=== PATIENT | female | born 1945 | race Caucasian/White ===

== ENCOUNTER 2023-09-07 11:34 | Outpatient (REF) | payer MEDICAID, OTHER, SELFPAY ==
[2023-09-07 13:21] LABS: MANUAL DIFF FLAG NO
[2023-09-07 13:27] LABS: Basophils Percent Auto 0.7 % (0-2); Eosinophils Absolute Auto 0.2 X10*3/uL (0.0-0.4); Eosinophils Percent Auto 3.8 % (0-4); Hematocrit 37.7 % (37.0-47.0); Hemoglobin 11.7 g/dl (12.0-16.0); Imm Gran Abs Auto 0.02 X10*3/uL (0.00-0.03); Imm Gran Pct Auto 0.4 % (0.0-0.4); Lymphocytes Absolute Auto 1.7 X10*3/uL (1.2-4.9); Lymphocytes Percent Auto 30.1 % (20-40); Mean Corpuscular Hemoglobin 25.9 pg (27.0-33.0); Mean Corpuscular Volume 83.6 fL (80.0-98.0); Monocytes Absolute Auto 0.5 X10*3/uL (0.1-1.2); Monocytes Percent Auto 8.9 % (2-11); Neutrophils Absolute Auto 3.1 x10*3/uL (2.0-8.3); Neutrophils Percent Auto 56.1 % (45-73); Platelet Count 233 X10*3/uL (160-400); Red Blood Count 4.51 X10*6/uL (4.20-5.50); Red Cell Distribution Width 15.8 % (11.0-16.0); White Blood Count 5.5 X10*3/uL (4.8-10.8)
[2023-09-07 13:39] LABS: Estimated Average Glucose 120 mg/dL; Hemoglobin A1c % 5.8 % (<6.0)
[2023-09-07 13:53] LABS: Alanine Aminotransferase 19 U/L (0-31); Albumin Level 4.1 g/dL (3.5-5.0); Alkaline Phosphatase 89 U/L (39-117); Anion Gap 14 (12-20); Aspartate Amino Transferase 25 U/L (5-31); Bilirubin Total 0.4 mg/dL (0.0-1.0); Blood Urea Nitrogen 13 mg/dL (9-16); Calcium 9.7 mg/dL (8.4-10.2); Carbon Dioxide 24 mmol/L (22-29); Chloride 107 mmol/L (96-108); Cholesterol 170 mg/dL (<200); Estimated Glomerular Filt Rate > 60; Glucose Random 85 mg/dL (60-115); HDL Cholesterol 56 mg/dL (>40); LDL Cholesterol Calculated 95 mg/dL (<100); Potassium 3.9 mmol/L (3.3-5.1); Sodium 141 mmol/L (135-145); Total Protein 7.6 g/dL (6.5-8.0); Triglycerides 99 mg/dL (<150)
[2023-09-07 13:58] LABS: Ferritin 14 ng/mL (10-250)
== END 2023-09-07 11:35 | disposition home or self-care (01) ==
LOC: HO.HHCL 11:34
PROVIDERS: Visit Provider Registered Nurse
DX: R73.03 Prediabetes (principal); E78.2 Mixed hyperlipidemia; Z86.2 Personal history of diseases of the blood and blood-forming organs and certain disorders involving the immune mechanism
CPT/HCPCS: 36415; 80053; 80061; 82728; 83036; 85025

== ENCOUNTER 2025-07-16 10:19 | Outpatient (REF) | payer MEDICAID, OTHER, SELFPAY ==
--- OUTSIDE RECORDS SUMMARY | 2025-07-16 09:15 | XMS_ITS | Encounter Summary ---
Author Organization [employer] Address [address] [facility] 7t [place] [address] Care Team Providers Care Tin Tie Machine Operator Automatic Name Role Phone Farzana Ortiz [facility] Primary Care Provider [phone] Reason for Visit * Reason Comments Follow-up Encounter Details Date Type Department Care Team (Late st Contact Info) Description 07/16/2025 9:15 AM EST Office Visit [facility] MEDICINE [address] [place], [place] [phone] Jessica Arauz FNP [address] [place] [address] Wellness examination (Primary Dx) Social History Tobacco Use Types Packs/Day Years Used Date Smoking Tobacco: Former Cigarettes 1 15 Passive Smoke Exposure: Past Smokeless Tobacco: Never Tobacco Cessation:Counseling Given: Not Answered Alcohol Use Standard Drinks/Week Comments Never 0 (1 standard drink = 0.6 oz pur e alcohol) Alcohol Answer Date Recorded How often do you have a drink containing alcohol ? 0 07/16/2025 How many drinks containing a lcohol do you have on a typical day when you are drinking? 0 07/16/2025 How often do you have six or more drinks on one occasion? 0 07/16/2025 Depression Answer Date Recorded Patient Health Questionnaire-9 Score 0 07/16/2025 Patient Health Questionnaire-9 Score 0 07/16/2025 Last PHQ-9: Questionnaire Data Not on file 1 09/16/2024 Housing Stability Answer Date Recorded What is your housing situation today? I have rona salmon 07/16/[address] you li ve. Do you have problems with any of the following? None of the above 07/16/2025 Food Insecurity Answer Date Recorded Within the past 12 months, y ou worried that your food would run out before you got money to buy more: Never True 07/16/2025 Within the past 12 months,th e food you bought just didn't last and you didn't have enough money to get more: Never True 11/2024 Transportation Answer Date Recorded In the past 12 months, has l ack of transportation kept you from medical appts, meetings, work or from getting things needed for daily living? No 07/16/2025 Utilities Answer Date Recorded In the past 12 months, has t he electric, gas, oil or water company threatened to shut off services in your home? No 07/16/2025 Depression Answer Date Recorded Patient Health Questionnaire-2 Score 0 07/16/2025 Internet Access Answer Date Recorded Internet Access Q1 No 07/16/2025 Internet Access Q2 I do not want or need it 11/2024 Comments Unknown Sex and Gender Information Value Date Recorded Sex Assigned at Female 06/12/2022 10:37 AM EDT Legal Sex Female 10:37 AM EDT Gender Identity Female 06/12/2022 10:37 AM EDT Sexual Orientation Straight 06/12/2022 10 :37 AM EDT documented as of this encounter Last Filed Vital Signs Vital Sign Reading Time Taken Comments Blood Pressure 139/72 07/16/2025 9:24 AM EST Pulse 83 07/16/2025 9:24 AM EST Temperature 36.4 C (97.6 F) 07/16/2025 9:24 AM EST Respiratory Rate 16 07/16/2025 9:24 AM EST Oxygen Saturation 98% 07/16/2025 9:24 AM EST Inhaled Oxygen Concentration - - Weight 83 kg (183 lb) 07/16/2025 9:24 AM EST Height 162.6 cm (5' 4 ) 07/16/2025 9:24 AM EST Body Mass Index 31.41 07/16/2025 9:24 AM EST documented in this encounter Functional Status * Over the past 2 weeks, how often have you been bothered by any of the following problems? Question Answer Date of Assessment Author Patient Health Questionnaire -2 Score 0 07/16/2025 10:19 AM EST Carrington Valencia MA * Little interest or pleasure in doing things Answer Date of Assessment Author Not at all 07/16/2025 10:19 AM Carrington Lehman MA * Feeling down, depressed, or hopeless Answer Date of Assessment Author Not at all 07/16/2025 10:19 AM Carrington Lehman MA * Trouble falling or staying asleep, or sleeping too much Answer Date of Assessment Author Not at all 07/16/2025 10:19 AM Carrington Lehman MA * Feeling tired or having little energy Answer Date of Assessment Author Not at all 07/16/2025 10:19 AM Carrington Lehman MA * Poor appetite or overeating Answer Date of Assessment Author Not at all 07/16/2025 10:19 AM Carrington Lehman MA * Feeling bad about yourself - or that you are a failure or have let yourself or your family down Answer Date of Assessment Author Not at all 07/16/2025 10:19 AM Carrington Lehman MA * Trouble concentrating on things, such as reading the newspaper or watching television Answer Date of Assessment Author Not at all 07/16/2025 10:19 AM Carrington Lehman MA * Moving or speaking so slowly that other people could have noticed? Or the opposite - being so fidgety or restless that you have been moving around a lot more than usual. Answer Date of Assessment Author Not at all 07/16/2025 10:19 AM Carrington Lehman MA * Thoughts that you would be better off or hurting yourself in some way Answer Date of Assessment Author Not at all 07/16/2025 10:19 AM Carrington Lehman MA * Patient Health Questionnaire-9 Score Answer Date of Assessment Author 0 07/16/2025 10:19 AM Carrington Lehman MA * Over the last 2 weeks, how often have you been bothered by any of the following problems? Question Answer Date of Assessment Author Feeling nervous, anxious, or on edge 0 07/16/2025 10:19 AM Carrington Lehman MA Not being able to stop or co ntrol worrying 0 07/16/2025 10:19 AM Carrington Lehman MA Worrying too much about diff erent things 0 07/16/2025 10:19 AM Carrington Lehman MA Trouble relaxing 0 07/16/2025 10:19 AM Carrington Lehman MA Being so restless that it is hard to sit still 0 07/16/2025 10:19 AM Carrington Lehman MA Becoming easily annoyed or irritable 0 07/16/2025 10:19 AM Carrington Lehman MA Feeling afraid as if somethi ng awful might happen 0 07/16/2025 10:19 AM Carrington Lehman MA JINA-7 Total Score 0 07/16/2025 10:19 AM Carrington Lehman MA documented as of this encounter Plan of Treatment Scheduled Orders Name Type Priority Associated Diagnoses Orde r Schedule Comprehensive Metabolic Panel Lab Routine Wellness examination Expected: 07/16/2025 (Approximate), Expires: 07/16/2026 documented as of this encounter Procedures Procedure Name Priority Date/Time Associated Diagnosis Comments CBC WITH AUTO DIFFERENTIAL Routine 07/16/2025 10:22 AM EST Wellness examination HEMOGLOBIN A1C Routine 07/16/2025 10:22 AM EST Wellness examination documented in this encounter Results * Hemoglobin A1c (07/16/2025 10:22 AM EST) Hemoglobin A1c 5.7 <6.0 % [facility] Comment:Hemoglobin A1C Refer ence Range Adults: 4.8 - 6.0 % Non diabetic: < 6.0 % Goal: < 7.0 %Additional Action Suggested: > 8.0 %Note: Hemoglobin A1c results are invalid for patients with abnormal amounts of HbF. Blood transfusions may impact the HbA1c concentration in the patient sample. Estimated Average Glucose 117 mg/dL [facility] Comment:eAG = Estimated ave rage glucose which is %A1C expressed asaverage glucose, using the formula of the [id number]-WtmruspPnwosqr Glucose study (ADAG), Diabetes Care, Vol.31,#8,Mar. 2007 Blood Venous blood specimen / Unknown 07/16/2025 10:22 AM EST 07/16/2025 11:09 AM EST us Jessica Arauz DEPORTATION OFFICER LAB BLOOD ORDERABLES Final Res ult [facility] [address] [place] [address] [phone] * (ABNORMAL) CBC auto differential (07/16/2025 10:22 AM EST) White Blood Count 7.5 4.8 - 10.8 X10*3/uL [facility] Red Blood Count 4.92 4.20 - 5.50 X10*6/uL [facility] Hemoglobin 13.5 12.0 - 16.0 g/dl [facility] Hematocrit 42.5 37.0 - 47.0 % [facility] Mean Corpuscular Volume 86.4 80.0 - 98.0 fL [facility] Mean Corpuscular Hemoglobin 27.4 27.0 - 33.0 pg [facility] Mean Corpuscular HGB Conc 31.8 31.0 - 35.0 g/dl [facility] Red Cell Distribution Width 16.5(H) 11.0 - 16.0 % [facility] Platelet Count 235 160 - 400 X10*3/uL [facility] Mean Platelet Volume 10.9 9.4 - 12.3 fL [facility] Neutrophils Percent Auto 63.1 45 - 73 % [facility] Imm Gran Pct Auto 0.4 0.0 - 0.4 % [facility] Lymphocytes Percent Auto 22.4 20 - 40 % [facility] Monocytes Percent Auto 9.3 2 - 11 % [facility] Eosinophils Percent Auto 3.7 0 - 4 % [facility] Basophils Percent Auto 1.1 0 - 2 % [facility] NRBC Pct Auto 0.0 0.0 - 0.2 /100WBC [facility] Neutrophils Absolute Auto 4.7 2.0 - 8.3 x10*3/uL [facility] Imm Gran Abs Auto 0.03 0.00 - 0.03 X10*3/uL [facility] Lymphocytes Absolute Auto 1.7 1.2 - 4.9 X10*3/uL [facility] Monocytes Absolute Auto 0.7 0.1 - 1.2 X10*3/uL [facility] Eosinophils Absolute Auto 0.3 0.0 - 0.4 X10*3/uL [facility] Basophils Absolute Auto 0.1 0.0 - 0.2 X10*3/uL [facility] NRBC Abs Auto 0.000 0.0 - 0.012 X10*3/uL [facility] Blood Venous blood specimen / Unknown 07/16/2025 10:22 AM EST 07/16/2025 11:09 AM EST us Jessica Arauz [facility] LAB BLOOD ORDERABLES Final Res ult [facility] [address] [place] [address] [phone] documented in this encounter Visit Diagnoses Diagnosis Wellness examination- Primary documented in this encounter Additional Health Concerns Assessment Noted Time PHQ-9 Depression Total Score: 0 07/16/20 25 10:19 AM EST documented as of this encounter Care Teams Tin Tie Machine Operator Automatic Relationship Specialty Start Date End Date Farzana Ortiz FNP [address] [place] [phone] PCP - General Family Medicine 04/12/22 documented as of this encounter
[2025-07-16 11:12] LABS: MANUAL DIFF FLAG NO
[2025-07-16 11:21] LABS: Hematocrit 42.5 % (37.0-47.0); Hemoglobin 13.5 g/dl (12.0-16.0); Imm Gran Abs Auto 0.03 X10*3/uL (0.00-0.03); Imm Gran Pct Auto 0.4 % (0.0-0.4); Lymphocytes Absolute Auto 1.7 X10*3/uL (1.2-4.9); Mean Corpuscular HGB Conc 31.8 g/dl (31.0-35.0); Mean Corpuscular Hemoglobin 27.4 pg (27.0-33.0); Mean Corpuscular Volume 86.4 fL (80.0-98.0); NRBC Abs Auto 0.000 X10*3/uL (0.0-0.012); NRBC Pct Auto 0.0 /100WBC (0.0-0.2); Platelet Count 235 X10*3/uL (160-400); Red Blood Count 4.92 X10*6/uL (4.20-5.50); White Blood Count 7.5 X10*3/uL (4.8-10.8)
--- OUTSIDE RECORDS SUMMARY | 2025-07-16 12:28 | XMS_ITS | Encounter Summary ---
Author Organization [employer] Address [address] [facility] 7t [place] [address] Care Team Providers Care Flavor Tank Tender Name Role Phone Farzana Ortiz [facility] Primary Care Provider [phone] Reason for Visit * Reason Onset Date Comments Chart Prep 07/14/2025 Encounter Details Date Type Department Care Team ([facility] st Contact Info) Description 07/14/2025 Telephone [facility] MEDICINE [address] [place], [place] [phone] Jessica Arauz FNP [address] [place], [place] [phone] Chart Prep Social History Tobacco Use Types Packs/Day Years Used Date Smoking Tobacco: Former Cigarettes 1 15 Smokeless Tobacco: Never Alcohol Use Standard Drinks/Week Comments Never 0 (1 standard drink = 0.6 oz pur e alcohol) Depression Answer Date Recorded Patient Health Questionnaire-9 Score 0 07/14/2024 Patient Health Questionnaire-9 Score 0 07/14/2024 Last PHQ-9: Questionnaire Data Not on file 1 09/14/2023 Housing Stability Answer Date Recorded What is your housing situation today? I have rona salmon 08/29/[address] you li ve. Do you have problems with any of the following? None of the above 08/29/2023 Food Insecurity Answer Date Recorded Within the past 12 months, y ou worried that your food would run out before you got money to buy more: Never True 08/29/2023 Within the past 12 months,th e food you bought just didn't last and you didn't have enough money to get more: Never True Transportation Answer Date Recorded In the past 12 months, has l ack of transportation kept you from medical appts, meetings, work or from getting things needed for daily living? No 08/29/2023 Utilities Answer Date Recorded In the past 12 months, has t he electric, gas, oil or water company threatened to shut off services in your home? No 08/29/2023 Depression Answer Date Recorded Patient Health Questionnaire-2 Score 0 07/14/2024 Comments Unknown Sex and Gender Information Value Date Recorded Sex Assigned at Female 06/12/2022 10:37 AM EDT Legal Sex Female 10:37 AM EDT Gender Identity Female 06/12/2022 10:37 AM EDT Sexual Orientation Straight 06/12/2022 10 :37 AM EDT documented as of this encounter Miscellaneous Notes * Telephone Encounter - Deidra Crespo MA - 07/14/2025 12:47 PM EST Chart Prep Labs: not applicable Images: not applicable Referrals: not applicable Vaccines due: Covid, PCV20, Tdap, RSV, and Zoster Screenings: Hep C. Overdue care gaps: A1c, Glucose, SBIRT, SDOH, PHQ-9, JINA-7, Oral health screening, and Tobacco documented in this encounter Plan of Treatment Not on file documented as of this encounter Visit Diagnoses Not on filedocumented in this encounter Additional Health Concerns Assessment Noted Time PHQ-9 Depression Total Score: 0 07/14/20 24 9:57 AM EST documented as of this encounter Care Teams Flavor Tank Tender Relationship Specialty Start Date End Date Farzana Ortiz FNP [address] [place] [phone] PCP - General Family Medicine 04/12/22 documented as of this encounter
--- OUTSIDE RECORDS SUMMARY | 2025-07-16 12:28 | XMS_ITS | Encounter Summary ---
Author Organization [employer] Address [address] [facility] 7t [place] [address] Care Team Providers Care Mill Dresser Name Role Phone Farzana Ortiz VU Primary Care Provider [phone] Encounter Details Date Type Department Care Team ([facility] st Contact Info) Description 03/20/2023 Orders Only [facility] [address] [place] [address] Lily Recinos LPN Social History Tobacco Use Types Packs/Day Years Used Date Smoking Tobacco: Never Assessed Comments Unknown Sex and Gender Information Value Date Recorded Sex Assigned at Female 06/12/2022 10:37 AM EDT Legal Sex Female 10:37 AM EDT Gender Identity Female 06/12/2022 10:37 AM EDT Sexual Orientation Straight 06/12/2022 10 :37 AM EDT documented as of this encounter Plan of Treatment Not on file documented as of this encounter Visit Diagnoses Not on filedocumented in this encounter Care Teams Mill Dresser Relationship Specialty Start Date End Date Farzana Ortiz FNP [address] [place] [phone] PCP - General Family Medicine 04/12/22 documented as of this encounter
--- OUTSIDE RECORDS SUMMARY | 2025-07-16 12:29 | XMS_ITS | Encounter Summary ---
Author Organization [employer] Address [address] [facility] 7t [place] [address] Care Team Providers Care Guest Service Host Name Role Phone Farzana Ortiz SHEETER MACHINE OPERATOR Primary Care Provider [phone] Encounter Details Date Type Department Care Team (Latest Contact Info) Description 07/16/2025 Travel Social History Tobacco Use Types Packs/Day Years Used Date Smoking Tobacco: Former Cigarettes 1 15 Passive Smoke Exposure: Past Smokeless Tobacco: Never Alcohol Use Standard Drinks/Week [...] AM EDT documented as of this encounter Functional Status * Over the past 2 weeks, how often have you been bothered by any of the following problems? Question Answer Date of Assessment Author Patient Health Questionnaire -2 Score 0 07/16/2025 10:19 AM Carrington Lehman MA * Little interest or pleasure in [...] Author Not at all 07/16/2025 10:19 AM Carrnigton Lehman MA * Thoughts that you would [...] JINA-7 Total Score 0 07/16/2025 10:19 AM Carringotn Lehman MA documented as of this encounter Plan of Treatment Not on file documented as of this encounter Visit Diagnoses Not on filedocumented in this encounter Additional Health Concerns Assessment Noted Time PHQ-9 Depression Total Score: 0 07/16/20 25 10:19 AM EST documented as of this encounter Care Teams Guest Service Host Relationship Specialty Start Date End Date Farzana Ortiz FNP [address] [place] [address] PCP - General Family Medicine 04/12/22 documented as of this encounter
--- OUTSIDE RECORDS SUMMARY | 2025-07-16 12:29 | XMS_ITS | Clinical Summary ---
Author Organization [employer] Address 75 [facility] 7t [place] [address] Care Team Providers Care Demo Coordinator Name Role Phone Farzana Ortiz [facility] Primary Care Provider [phone] Allergies No known active allergies Medications cholecalciferol (Vitamin D-3) 50 MCG (1999) tablet Active Vitamins-Lipotropic s (B Complex Formula 1, Lipotrop,) tablet Ac tive magnesium 200 MG tablet Active Blood Pressure kitIndications:Elev ated blood pressure reading in office without diagnosis of hypertension Use as directed 1 kit 4 Active atorvastatin (Lipitor) 80 MG tabletIndications:M ixed hyperlipidemia TAKE ONE TABLET BY MOUTH AT BEDTIME 90 tablet 3 4 Active albuterol 108 (90 Base) MCG/ACT inhaler Inhale 2 puffs Every 4-6 hours as needed for wheezing. 18 g 1 5 Active Advair Diskus 250-50 MCG/ACT aerosol powder INHALE ONE PUFF TWICE DAILY, RINSE MOUTH AFTER USE 60 each 3 5 Active Active Problems Problem Noted Date Diagnosed Date Mild intermittent asthma 09/07/2023 024 Hyperlipidemia 09/07/2023 09/07/2023 Prediabetes 11/01/2021 09/07/2023 Encounters Date Type Department Care Team Description 07/16/2025 9:15 AM EST Office Visit [facility] MEDICINE [address] [place] [phone] Jessica Arauz FNP Wellness examination (Primary Dx) 07/16/2025 Travel 07/14/2025 Telephone [facility] MEDICINE [address] [place] [address] Jessica Arauz FNP Chart Prep 07/07/2025 Travel 07/07/2025 Telephone [facility] MEDICINE [address] [place] [address] WhitehallFarzana FNP Nurse Triage from Last 3 Months Immunizations Immunization Administration Dates Next Due TD (adult), 2 Lf tetanus tox oid, preservative free, adsorbed 09/07/2023 Social History Tobacco Use Types Packs/Day Years [...] Orientation Straight 06/12/2022 10 :37 AM EDT Last Filed Vital Signs Vital Sign Reading [...] Mass Index 31.41 07/16/2025 9:24 AM EST Plan of Treatment Health Maintenance Due Date Last Done Comments Hepatitis C Screening 12/28/1963 Pneumococcal Vaccine: 50+ Years (1 of 2 - PCV) 12/28/1966 Zoster Vaccines (1 of 2) 12/28/1997 RSV Patients and Patients Aged 60 years or older (1 - 1-dose 75+ series) 12/28/2022 DTaP/Tdap/Td Vaccines (1 - Tdap) 09/08/2023 09/07/2023 Diabetes: Hemoglobin A1C 09/07/2024 025, 09/07/2023, 10/28/2021, Additional history exists COVID-19 Vaccine ( season) 2025 08/19/2021, 11/16/2020, 10/19/2020 Influenza Vaccine (#1) 2025 Alcohol/Substance Use Screening 07/16/2026 07/16/2025 Depression Screening 07/16/2026 07/16/2025, 07/16/20 25 SDOH Screening 07/16/2026 07/16/2025 Tobacco Screening 07/16/2026 07/16/2025 HIB Vaccines Aged Out No longer eligi ble based on patient's age to complete this topic HPV Vaccines Aged Out No longer eligi ble based on patient's age to complete this topic Hepatitis A Vaccines Aged Out No long er eligible based on patient's age to complete this topic Hepatitis B Vaccines Aged Out No long er eligible based on patient's age to complete this topic IPV Vaccines Aged Out No longer eligi ble based on patient's age to complete this topic Meningococcal B Vaccine Aged Out No l onger eligible based on patient's age to complete this topic Meningococcal Vaccine Aged Out No mikal emerita eligible based on patient's age to complete this topic RSV under 20 months Aged Out No longe r eligible based on patient's age to complete this topic Rotavirus Vaccines Aged Out No longer eligible based on patient's age to complete this topic Procedures Procedure Name Priority Date/Time Associated Diagnosis Comments HEMOGLOBIN A1C Routine 07/16/2025 10:22 AM EST Wellness examination CBC WITH AUTO DIFFERENTIAL Routine 07/16/2025 10:22 AM EST Wellness examination from Last 3 Months Results * (ABNORMAL) CBC auto differential (07/16/2025 10:22 AM EST) White Blood Count 7.5 4.8 - 10.8 X10*3/uL [facility] Red Blood Count 4.92 4.20 - 5.50 X10*6/uL [facility] Hemoglobin 13.5 12.0 - 16.0 g/dl [facility] Hematocrit 42.5 37.0 - 47.0 % [facility] Mean Corpuscular Volume 86.4 80.0 - 98.0 fL [facility] Mean Corpuscular Hemoglobin 27.4 27.0 - 33.0 pg [facility] Mean Corpuscular HGB Conc 31.8 31.0 - 35.0 g/dl [facility] Red Cell Distribution Width 16.5(H) 11.0 - 16.0 % [facility] Platelet Count 235 160 - 400 X10*3/uL [facility] Mean Platelet Volume 10.9 9.4 - 12.3 fL [facility] Neutrophils Percent Auto 63.1 45 - 73 % [facility] Imm Gran Pct Auto 0.4 0.0 - 0.4 % [facility] Lymphocytes Percent Auto 22.4 20 - 40 % [facility] Monocytes Percent Auto 9.3 2 - 11 % [facility] Eosinophils Percent Auto 3.7 0 - 4 % [facility] Basophils Percent Auto 1.1 0 - 2 % [facility] NRBC Pct Auto 0.0 0.0 - 0.2 /100WBC [facility] Neutrophils Absolute Auto 4.7 2.0 - 8.3 x10*3/uL [facility] Imm Gran Abs Auto 0.03 0.00 - 0.03 X10*3/uL [facility] Lymphocytes Absolute Auto 1.7 1.2 - 4.9 X10*3/uL [facility] Monocytes Absolute Auto 0.7 0.1 - 1.2 X10*3/uL [facility] Eosinophils Absolute Auto 0.3 0.0 - 0.4 X10*3/uL [facility] Basophils Absolute Auto 0.1 0.0 - 0.2 X10*3/uL [facility] NRBC Abs Auto 0.000 0.0 - 0.012 X10*3/uL [facility] Blood Venous blood specimen / Unknown 07/16/2025 10:22 AM EST 07/16/2025 11:09 AM EST us Jessica Arauz ENTRY LEVEL JAVA DEVELOPER LAB BLOOD ORDERABLES Final Res ult [facility] [address] [place] [phone] [phone] * Hemoglobin A1c (07/16/2025 10:22 AM EST) Hemoglobin A1c 5.7 <6.0 % [facility] Comment:Hemoglobin A1C Refer ence Range Adults: 4.8 - 6.0 % Non diabetic: < 6.0 % Goal: < 7.0 %Additional Action Suggested: > 8.0 %Note: Hemoglobin A1c results are invalid for patients with abnormal amounts of HbF. Blood transfusions may impact the HbA1c concentration in the patient sample. Estimated Average Glucose 117 mg/dL [facility] Comment:eAG = Estimated ave rage glucose which is %A1C expressed asaverage glucose, using the formula of the [id number]-[id number] Glucose study (ADAG), Diabetes Care, Vol.31,#8,Mar. 2007 Blood Venous blood specimen / Unknown 07/16/2025 10:22 AM EST 07/16/2025 11:09 AM EST us Jessicaraman Vargasaaliyah ENTRY LEVEL JAVA DEVELOPER LAB BLOOD ORDERABLES Final Res ult [facility] [address] [place] [address] [phone] from Last 3 Months Insurance [facility] [employer] Care Teams Demo Coordinator Relationship Specialty Start Date End Date Farzana Ortiz FNP [address] [place] [phone] PCP - General Family Medicine 04/12/22
--- OUTSIDE RECORDS SUMMARY | 2025-07-16 12:29 | XMS_ITS | Encounter Summary ---
Author Organization [employer] Address [address] [place] [address] [address] [place] [address] Care Team Providers Care Business Continuity Planner Name Role Phone [place] [facility] Primary Care Provider [phone] Reason for Visit * Reason Onset Date Comments Appointment Request 08/22/2023 Encounter Details Date Type Department Care Team ([facility] st Contact Info) Description 08/22/2023 Telephone [facility] MEDICINE [address], [place] [id number] Farzana Ortiz [facility] [address] [place] [address] Appointment Request Social History Tobacco Use Types Packs/Day Years Used Date Smoking Tobacco: Never Assessed Comments Unknown Sex and Gender Information Value Date Recorded Sex Assigned at Female 06/12/2022 10:37 AM EDT Legal Sex Female 10:37 AM EDT Gender Identity Female 06/12/2022 10:37 AM EDT Sexual Orientation Straight 06/12/2022 10 :37 AM EDT documented as of this encounter Miscellaneous Notes * Telephone Encounter - Anna Contreras - 08/22/2023 2:35 PM EST Tc from grandchild requesting a f/u appt with PCP , no concerns at the moment, pt needs medications. [phone] documented in this encounter Plan of Treatment Not on file documented as of this encounter Visit Diagnoses Not on filedocumented in this encounter Care Teams Business Continuity Planner Relationship Specialty Start Date End Date Farzana Ortiz FNP [address] [place] [address] PCP - General Family Medicine 04/12/22 documented as of this encounter
[2025-07-16 14:19] LABS: Alanine Aminotransferase 33 U/L (0-31); Albumin Level 4.8 g/dL (3.5-5.0); Alkaline Phosphatase 106 U/L (39-117); Anion Gap 13 (12-20); Aspartate Amino Transferase 38 U/L (5-31); Blood Urea Nitrogen 17 mg/dL (9-16); Calcium 9.8 mg/dL (8.4-10.2); Carbon Dioxide 28 mmol/L (22-29); Chloride 107 mmol/L (96-108); Estimated Glomerular Filt Rate > 60; Potassium 5.2 mmol/L (3.3-5.1); Sodium 143 mmol/L (135-145); Total Protein 8.0 g/dL (6.5-8.0)
== END 2025-07-16 10:20 | disposition home or self-care (01) ==
LOC: HO.HHCL 10:19
PROVIDERS: PCP Nurse Practitioner Family; Visit Provider Nurse Practitioner Family
DX: Z00.00 Encounter for general adult medical examination without abnormal findings (principal)
CPT/HCPCS: 36415; 80053; 83036; 85025